=== PATIENT | male | born 1950 | race Caucasian/White ===

== ENCOUNTER 2017-04-23 15:29 | Emergency (ER) | payer MEDICARE, OTHER ==
--- NOTE | 2017-04-23 17:16 | C.PDOC ---
History Of Present Illness 66yo male, presents to ED for evaluation of dark colored urine for the past week and noticed blood today. Patient states he called Urologist Dr. Castañeda who advised him to come to ER for further evaluation. Patient states he has mild left back pain, but this is not new or unusual. He has history of kidney stones and stents. He denies any fever, chills, groin pain, abdominal pain. Time Seen by Provider: 04/23/17 16:52 Chief Complaint (Nursing): Male Genitourinary History Per: Patient History/Exam Limitations: no limitations Onset/Duration Of Symptoms: Days Current Symptoms Are (Timing): Still Present Associated Symptoms: Urinary Symptoms Past Medical History Reviewed: Historical Data, Nursing Documentation, Vital Signs Vital Signs: Last Vital Signs Temp 98.7 F 04/23/17 19:27 Pulse 64 04/23/17 19:27 Resp 20 04/23/17 19:27 BP 145/77 04/23/17 19:27 Pulse Ox 100 04/23/17 19:27 - Medical History PMH: Anemia Surgical History: No Surg Hx Family History: States: No Known Family Hx - Social History Hx Alcohol Use: No Hx Substance Use: No - Immunization History Hx Tetanus Toxoid Vaccination: No Hx Influenza Vaccination: Yes Hx Pneumococcal Vaccination: No Review Of Systems Constitutional: Negative for: Fever, Chills Cardiovascular: Negative for: Palpitations Respiratory: Negative for: Shortness of Breath Gastrointestinal: Negative for: Abdominal Pain Genitourinary: Positive for: Hematuria Musculoskeletal: Positive for: Back Pain Neurological: Negative for: Headache Physical Exam - Physical Exam Appears: Non-toxic, No Acute Distress Skin: Normal Color, Warm, Dry Head: Atraumatic, Normacephalic Eye(s): bilateral: Normal Inspection, EOMI Neck: Normal ROM, Supple Chest: Symmetrical Cardiovascular: Rhythm Regular, No Murmur Respiratory: Normal Breath Sounds, No Rales, No Rhonchi, No Wheezing Gastrointestinal/Abdominal: Normal Exam, Soft, No Tenderness, No Guarding Back: Normal Inspection, No CVA Tenderness, No Vertebral Tenderness, No Decreased ROM, No Paraspinal Tenderness Extremity: Bilateral: Atraumatic, Normal Color And Temperature, Normal ROM Neurological/Psych: Oriented x3, Normal Speech Gait: Steady ED Course And Treatment O2 Sat by Pulse Oximetry: 99 (RA) Pulse Ox Interpretation: Normal Medical Decision Making Medical Decision Making: Impression: Hematuria Plan: -- Urine culture -- Urinalysis Lab results: UA shows no blood, multiple RBCs, LE or other abnormal findings. Time: [address] Castañeda who is requesting a KUB study. Time: 1856 XRay reviewed by me and Dr Bustillos, and no evidence of kidney stones. Again call Dr. Castañeda informed of findings and states to give patient a urine cup and to tell the patient next time he noticed blood in his urine, to collect it and return for evaluation. Patient remained well, in no acute distress during ED evaluation. He had no fever, flank pain, abdominal pain to suggest renal colic or infectious etiology. Patient given follow up instructions and sterile urine cup to take home with him. Patient verbalized understanding and is stable for discharge Disposition Counseled Patient/Family Regarding: Studies Performed, Diagnosis, Need For Followup - Disposition Referrals: Vidal Castañeda MD [Staff Provider] - Disposition: HOME/ ROUTINE Disposition Time: 18:59 Condition: STABLE Additional Instructions: Follow up with Dr Castañeda in office. Take urine cup with you and the next time you see blood or brown urine collect specimen and bring it with you. Or return to hospital for any worsening symptoms or concern Instructions: Dysuria (GEN) Forms: [facility] (Swazi) - POA Present On Arrival: None - Clinical Impression Clinical Impression: Abnormal urine color - PA / OPTICAL FABRICATION TECHNICIAN / Resident Statement MD/DO has reviewed & agrees with the documentation as recorded. - Scribe Statement The provider has reviewed the documentation as recorded by the Scribe (Roma Fairchild) Provider Scribe Attestation: All medical record entries made by the Scribe were at my direction and personally dictated by me. I have reviewed the chart and agree that the record accurately reflects my personal performance of the history, physical exam, medical decision making, and the department course for this patient. I have also personally directed, reviewed, and agree with the discharge instructions and disposition.
[2017-04-23 17:42] LABS: URINE BACTERIA RARE (<OCC); URINE BILIRUBIN NEGATIVE (NEGATIVE); URINE BLOOD NEGATIVE (NEGATIVE); URINE CLARITY Clear (Clear); URINE COLOR Yellow (YELLOW); URINE GLUCOSE (UA) NORMAL (Normal); URINE LEUKOCYTE ESTERASE NEG Leu/uL (Negative); URINE NITRATE NEGATIVE (NEGATIVE); URINE PROTEIN 2+ mg/dL (NEGATIVE)
[2017-04-23 19:28] VITALS: BP 145/77; PULSE 64; RESP 20; TEMP 98.7
--- NOTE | 2017-04-24 11:06 | RAD ---
HISTORY: poss stone COMPARISON: 04/10/2013 CT abdomen and pelvic report FINDINGS: BOWEL: Moderate stool retention. No bowel obstruction. Projecting over the left mid to lower renal pole, a 2 x 1 mm calculus is noted. Obscuring bowel gas stool limits right renal calculus assessment even with obliques. 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 Bilateral superior and lesser bilateral inferior acetabular osseous hypertrophy. Bilateral superolateral hip joint space narrowing. No fractures appreciated. OTHER FINDINGS: None. IMPRESSION: 2 x 1 mm left renal calculus possible. Senescent changes- lumbar spine and both hips.
[2017-04-26 19:34] VITALS: O2SAT 99
== END 2017-04-23 19:27 | disposition home or self-care (01) ==
LOC: C.ER 15:29
DX: R82.90 Unspecified abnormal findings in urine (principal)

== ENCOUNTER 2018-03-09 18:48 | Emergency (ER) | payer MEDICARE, OTHER ==
[2018-03-09 18:59] VITALS: BP 156/82; PULSE 76; RESP 18; TEMP 98.9; O2SAT 99
[2018-03-09] MEDS ORDERED: Sodium Chloride 0.9% 1,000 ML IV STA (19:21)
--- NOTE | 2018-03-09 19:21 | C.PDOC ---
History Of Present Illness 67 year old male presents to the ED c/o hematuria for the past 3 days. Patient states his symptoms are intermittent associated with occasional left falnk apin and nausea. Patient states he has not seen any clots. Patient denies fever, chills, vomit, diarrhea, injury, fall, trauma. Time Seen by Provider: 03/09/18 19:07 Chief Complaint (Nursing): Male Genitourinary History Per: Patient History/Exam Limitations: no limitations Onset/Duration Of Symptoms: Days (3), Intermittent Episodes Current Symptoms Are (Timing): Still Present Quality Of Discomfort: "Pain" Associated Symptoms: Nausea (occasional), Urinary Symptoms. denies: Vomiting, Diarrhea Recent travel outside of the [place]: No Additional History Per: Patient Past Medical History Reviewed: Historical Data, Nursing Documentation, Vital Signs Vital Signs: Last Vital Signs Temp 98.9 F 03/09/18 18:57 Pulse 76 03/09/18 18:57 Resp 18 03/09/18 18:57 BP 156/82 H 03/09/18 18:57 Pulse Ox 99 03/09/18 18:57 - Medical History PMH: Anemia Surgical History: No Surg Hx Family History: States: Unknown Family Hx - Social History Hx Alcohol Use: No Hx Substance Use: No - Immunization History Hx Tetanus Toxoid Vaccination: No Hx Influenza Vaccination: Yes Hx Pneumococcal Vaccination: No Review Of Systems Constitutional: Negative for: Fever, Chills Cardiovascular: Negative for: Chest Pain Respiratory: Negative for: Shortness of Breath Gastrointestinal: Positive for: Nausea (occasional). Negative for: Vomiting, Abdominal Pain, Diarrhea Genitourinary: Positive for: Hematuria. Negative for: Dysuria Musculoskeletal: Positive for: Back Pain (occasional) Neurological: Negative for: Weakness, Numbness Physical Exam - Physical Exam Appears: Non-toxic, No Acute Distress Skin: Normal Color, Warm, Dry Head: Atraumatic, Normacephalic Eye(s): bilateral: Normal Inspection Oral Mucosa: Moist Neck: Normal ROM, Supple Chest: Symmetrical Cardiovascular: Rhythm Regular Respiratory: Normal Breath Sounds, No Rales, No Rhonchi, No Wheezing Gastrointestinal/Abdominal: Soft, No Tenderness, No Guarding, No Rebound Back: No CVA Tenderness Extremity: Normal ROM, No Tenderness, No Swelling Neurological/Psych: Oriented x3, Normal Speech, Normal Cognition Gait: Steady ED Course And Treatment - Laboratory Results Result Diagrams: 03/09/18 20:03 03/09/18 19:35 O2 Sat by Pulse Oximetry: 99 (ON RA) Pulse Ox Interpretation: Normal - CT Scan/US CT abd/pelvis Other Rad Studies (CT/US): Read By Radiologist, Radiology Report Reviewed CT/US Interpretation: CT of the abdomen and pelvis without contrast. Clinical statement: Pain. Hematuria. Technique: Multiple axial CT images were obtained from the base of the lungs to the floor of the pelvis utilizing 5 mm axial slices without administration of contrast. Coronal and sagittal reconstructions were also obtained. Comparison: None. Findings: Chest: The visualized lung bases are clear. Abdomen: The kidneys are normal in size bilaterally. There are numerous bilateral simple renal cysts. There also bilateral hyperdense lesions. For example, a hyperdense lesion in the lateral right kidney measures 2.4 x 2.2 cm. Hyperdense lesion in the posterior left kidney measures 1.2 x 0.7 cm. There is no evidence of hydronephrosis, but bilateral nonobstructing nephrolithiasis is appreciated. The liver, spleen, pancreas, gallbladder and a drenal glands are unremarkable. The aorta demonstrates normal caliber and contour. There is no abdominal lymphadenopathy or ascites. Pelvis: The bowel is unremarkable, with no obstructive or inflammatory changes. The appendix is normal. The urinary bladder is within normal limits. There is no pelvic lymphadenopathy or ascites. Phleboliths are seen in the lower pelvis. The other pelvic structures appear unremarkable. Bones: There are no suspicious osseous abnormalities seen. Impression: 1. Bilateral nonobstructing nephrolithiasis.2. Numerous bilateral simple renal cysts. Additionally, there are multiple hyperdense lesions bilaterally, likely representing hemorrhagic or proteinaceous cysts. If there is further clinical concern, ultrasound would be helpful for further evaluation. 3. No obstructive or inflammatory bowel changes. . Electronically signed on Mar 09, 2018 9:21:09 PM EST by: Ariel James M.D., FARHAD Certified By ABR & CBC[employer]. Fellowship Trained MRI and CT Specialist. Progress - Re-Evaluation Re-evaluation Note: 03/09/18 21:43 FAMILY @ BEDSIDE. PT ADVISED OF CT AND LAB FINDINGS, NEED FOR ADMISSION FOR TRANSFUSION AND POSSIBLE EVAL BY NEPHROLOGY AND/OR UROLOGY. The patient declines admission to the hospital and wishes to leave the Emergency Department. This action is against my medical advice. This decision was made with informed refusal. The patient was told that admission to the hospital is necessary. Explanation of the reasons why were discussed. The risks of leaving were explained to the patient and include, but are not limited to, worsening of known or currently unknown conditions, permanent disability and from undiagnosed or untreated conditions. The patient has the capacity to make this informed decision and understands my explanation of the current medical problem and risks of leaving. The patient voluntarily accepts these risks and signed an AMA form documenting o ur conversation. The patient was given the opportunity to ask questions and reconsider. The patient was encouraged to return to the Emergency Department at any time for further care. - Data Reviewed Data Reviewed: Lab, Diagnostic imaging, Old records Medical Decision Making Medical Decision Making: Plan: * CT abd/pelvis * Labs * Flomax 0.4 mg PO * IV fluids * Toradol 30 mg IVP * Tylenol 975 mg PO * Urine culture * UA Disposition Counseled Patient/Family Regarding: Studies Performed, Diagnosis, Need For Followup - Disposition Referrals: YOUR,PMD [Other] Disposition: HOME/ ROUTINE Disposition Time: 21:44 Condition: STABLE Additional Instructions: YOU HAVE BEEN ADVISED OF THE NEED FOR FURTHER TESTING OF YOUR EMERGENCY MEDICAL CONDITION. YOU HAVE BEEN ADVISED THE RISKS OF LEAVING INCLUDING DISABILITY, DETERIORATION AND . YOU HAVE STATED VERBAL UNDERSTANDING AND WISH TO PROCEED TO LEAVE AGAINST MEDICAL ADVICE. FOLLOW UP WITH YOUR PMD MELA. RETURN IF WORSENING SYMPTOMS. Instructions: Normocytic Normochromic Anemia (DC), Polycystic Kidney Disease, Blood in the Urine (Hematuria), Adult (DC), Leaving Against Medical Advice Forms: [facility] (Greek) - Clinical Impression Clinical Impression: Renal cyst, Symptomatic anemia - Scribe Statement The provider has reviewed the documentation as recorded by the Scribe Dimitri Montes De Oca All medical record entries made by the Scribe were at my direction and personally dictated by me. I have reviewed the chart and agree that the record accurately reflects my personal performance of the history, physical exam, medical decision making, and the department course for this patient. I have also personally directed, reviewed, and agree with the discharge instructions and disposition.
[2018-03-09] MEDS ORDERED: Sodium Chloride 0.9% 1,000 ML ONE (19:38)
[2018-03-09 19:47] LABS: GRANULAR CAST 2 /lpf (0-1); SQUAMOUS EPITHIAL < 1 /hpf (0-5); URINE AMORPHOUS SEDIMENT OCC /ul (<OCC); URINE BACTERIA RARE (<OCC); URINE BILIRUBIN NEGATIVE (NEGATIVE); URINE BLOOD 3+ (NEGATIVE); URINE CLARITY Hazy (Clear); URINE COLOR Amber (YELLOW); URINE GLUCOSE (UA) NORMAL (Normal); URINE LEUKOCYTE ESTERASE NEG Leu/uL (Negative); URINE PROTEIN 2+ mg/dL (NEGATIVE); URINE UROBILINOGEN NORMAL mg/dL (0.2-1.0)
[2018-03-09 19:53] LABS: ALB/GLOB RATIO 1.5 (1.0-2.1); ALBUMIN 4.6 g/dL (3.5-5.0); BLOOD UREA NITROGEN 25 mg/dL (9-20); CALCIUM 9.4 mg/dl (8.6-10.4); GFR NON-AFRICAN AMERICAN > 60; LIPASE 307 U/L (23-300)
[2018-03-09 19:54] LABS: ALT/SGPT 24 U/L (21-72); AST/SGOT 119 U/L (17-59)
[2018-03-09 21:35] LABS: RBC 2.41 Mil/uL (4.40-5.90)
[2018-03-09 21:36] LABS: MEAN CELL VOLUME 90.1 fL (80.0-94.0); MEAN CORPUSCULAR HEMOGLOBIN 30.4 pg (27.0-31.0); MEAN CORPUSCULAR HGB CONC 33.8 g/dL (33.0-37.0); MEAN PLATELET VOLUME 9.8 fL (7.2-11.7); RED CELL DISTRIBUTION WIDTH 18.8 % (11.5-14.5)
[2018-03-09 21:37] LABS: WHITE BLOOD COUNT 6.8 K/uL (4.8-10.8)
[2018-03-09 21:48] LABS: HEMOGLOBIN 7.3 g/dL (12.0-18.0)
[2018-03-09 21:54] LABS: BASO # 0.1 K/uL (0.0-0.2); EOS # 0.2 K/uL (0.0-0.7); MONO # 0.4 K/uL (0.0-0.8); NEUT # 5.1 K/uL (1.8-7.0)
--- NOTE | 2018-03-10 11:04 | CT ---
Date of service: 03/09/2018 PROCEDURE: CT Abdomen and Pelvis without intravenous contrast HISTORY: l flank pain, hematuria COMPARISON: 04/10/2013 for. TECHNIQUE: CT scan of the abdomen and pelvis was performed without administration of intravenous contrast. Oral contrast was not administered. Coronal and sagittal reformatted images were obtained. . Radiation dose: Total exam DLP = 558.56 mGy-cm. This CT exam was performed using one or more of the following dose reduction techniques: Automated exposure control, adjustment of the mA and/or kV according to patient size, and/or use of iterative reconstruction technique. FINDINGS: LOWER THORAX: There is dependent atelectasis in the lung bases. LIVER: Normal in size. No intrahepatic ductal dilatation. GALLBLADDER AND BILE DUCTS: No calcified gallstones. No biliary dilatation PANCREAS: Normal in size. No ductal dilatation. SPLEEN: Moderate splenomegaly. ADRENALS: Normal in size. No discrete nodule. KIDNEYS AND URETERS: The kidneys are normal in size. There are small nonobstructing stones in both kidneys measuring up to 5 mm. There are several simple cortical cysts in both kidneys, the largest in the right upper pole measures 8.3 x 6.7 cm. There are also subcentimeter hemorrhagic cysts in both kidneys. There is a stable 2.1 x 2.4 cm exophytic high attenuation lesion in the lower pole of the right kidney is most compatible with a hemorrhagic cyst. VASCULATURE: No aortic aneurysm. No aortic atherosclerotic calcification or mural plaque present. BOWEL: The small bowel loops are normal in caliber. The colon is normal in size. No bowel dilatation or wall thickening. No bowel obstruction. APPENDIX: Normal appendix. PERITONEUM: No free fluid. No free air. LYMPH NODES: No enlarged lymph nodes. BLADDER: Well distended and grossly normal in appearance. REPRODUCTIVE: The prostate gland is normal in size BONES: No acute fracture. OTHER FINDINGS: None. IMPRESSION: 1. Small nonobstructing stones in both kidneys, the largest in the right interpolar region measures 5 mm. 2. Simple cortical cysts in both kidneys, the largest exophytic cyst in the right upper pole measures 8.3 x 6.7 cm. 3. Subcentimeter hemorrhagic cysts in both kidneys and little interval change in 2.1 x 2.4 cm presumable hemorrhagic cyst in the lower pole of the right kidney. 4. Moderate splenomegaly. A preliminary report was provided by [facility].
== END 2018-03-09 22:28 | disposition home or self-care (01) ==
LOC: C.ER 18:48
DX: D64.9 Anemia, unspecified (principal); N28.1 Cyst of kidney, acquired
CPT/HCPCS: 74176; 80053; 81001; 83690; 85025; 87086; 96361; 96374; 99284; J1885; J7030